=== PATIENT | female | born 1975 | race Caucasian/White ===

== ENCOUNTER → 2018-04-08 11:44 | Outpatient (CLI) | payer OTHER, SELFPAY ==
--- NOTE | 2018-04-08 | DI.US.S_ITS ---
PROCEDURE: US PELVIC COMPLETE INDICATIONS: PAIN TECHNIQUE: Real-time scanning was performed of the pelvic organs, with image documentation. Additional endovaginal scanning was necessary due to incomplete visualization of the adnexal and endometrial structures by transabdominal scanning. COMPARISON: None. FINDINGS: Transabdominal scanning: Limited scanning through the kidneys shows no hydronephrosis. Hyperechoic renal calyces are incidentally noted, however. No pathologic free abdominal or pelvic fluid. Endovaginal scanning: Uterus: Uterus is normal in size at 6.5 x 4.1 x 5.3 cm. The endometrium measures 12 mm in combined thickness and demonstrates heterogeneity. Ovaries: The right ovary measures 2.3 x 1.3 x 1 point or cm. The left ovary measures 2.5 x 1.3 x 1.3 cm. The ovaries have a normal sonographic appearance, with physiologic cystic follicle seen. No adnexal masses are seen. IMPRESSION: 12 mm endometrial stripe, which is within normal limits. The endometrial stripe is heterogeneous, which is likely related to the stage of menstruation. Hyperechoic renal calyces are incidentally noted. Please correlate with potential causes of medullary nephrocalcinosis. Dictated by: Brent Bobo M.D. on 04/08/2018 at 13:53 Approved by: Brent Bobo M.D. on 04/08/2018 at 13:55
--- NOTE | 2018-04-08 | DI.CT.S_ITS ---
PROCEDURE: CT ABDOMEN PELVIS WO CON INDICATIONS: right pain around gallbladder TECHNIQUE: Noncontrast 5 mm thick sections acquired from the diaphragms to the symphysis. 5 mm coronal and sagittal reformats were then performed. For radiation dose reduction, the following was used: automated exposure control, adjustment of mA and/or kV according to patient size. COMPARISON: None. FINDINGS: Image quality: Excellent. ABDOMEN: Lung bases: Lung bases are clear. Heart size is normal. Solid organs: Liver is normal in size. Gallbladder is largely collapsed at the time of this study, limiting its evaluation. Pancreas is normal in contours. Spleen is normal in size. No adrenal nodules. The kidneys demonstrate normal size. There is diffuse calcification seen of the renal pyramids. Nonobstructing bilateral renal stones are seen. The largest solitary stone seen on the right measuring up to 4 mm in greatest axial dimension, with a craniocaudal extent of 7 mm.. The largest stone on the left side measures 2-3 mm, as on series 2 image 24. There is no hydronephrosis. No stones are seen along the courses of the ureters. There is a prominent pelvic phlebolith seen on the left side, as on series 2 image 73, which is seen separate from the distal left ureter, which is seen medial to the phlebolith. Peritoneum and bowel: Unenhanced bowel loops demonstrate normal wall thickness and caliber. No free fluid or air. Nodes and vessels: No retroperitoneal or mesenteric adenopathy by size criteria. Aorta and inferior vena cava are normal in caliber. Miscellaneous: No ventral hernias. PELVIS: Genitourinary: Bladder wall thickness is normal. Miscellaneous: No inguinal hernias or adenopathy. Bones: No suspicious bony lesions. No vertebral body compression fractures. Mild levoconvex scoliotic curvature is noted. IMPRESSION: Nonobstructing bilateral renal stones are seen. No hydronephrosis or ureteral stones are seen. Medullary nephrocalcinosis is seen. Collapsed gallbladder, which limits evaluation of the gallbladder. Dictated by: Brent Bobo M.D. on 04/08/2018 at 11:15 Approved by: Brent Bobo M.D. on 04/08/2018 at 11:19
== END ==
PROVIDERS: Referring Provider Obstetrics & Gynecology; Visit Provider Nurse Practitioner Family
DX: R10.9 Unspecified abdominal pain (principal); N20.0 Calculus of kidney; N29 Other disorders of kidney and ureter in diseases classified elsewhere
CPT/HCPCS: 74176; 76830; 76856

== ENCOUNTER → 2019-01-04 11:17 | Outpatient (CLI) | payer OTHER, SELFPAY ==
--- NOTE | 2019-01-04 | DI.US.S_ITS ---
PROCEDURE: US RENAL COMPLETE INDICATIONS: Kidney Disease TECHNIQUE: Real-time scanning was performed of the kidneys and bladder, with image documentation. COMPARISON: [facility], CT, CT ABDOMEN PELVIS WO CON, 04/08/2018, 11:46. FINDINGS: Kidneys: Kidneys are normal in size. Right kidney measures 10.9 cm long; left kidney measures 9.7 cm long. Right renal cortical thickness is 0.7 cm; left renal cortical thickness is 0.5 cm. There is increased echogenicity in the renal medulla bilaterally, compatible with medullary calcinosis. Small punctate echogenic foci bilaterally are consistent with nonobstructive stones. No hydronephrosis. No suspicious solid mass lesions. Bladder: Pre-void bladder volume is 443 mL. Post-void residual is 4 mL. Pre-void images demonstrate no intraluminal masses or stones. On pre-void images, both ureteral jets are noted with color Doppler interrogation. (Of note, ureteral jets may not be detectable in up to 25% of cases due to insufficient differences in specific gravity between ureteral and bladder urine). Miscellaneous: No free pelvic fluid. A 5 mm hyperechoic nodule is noted in spleen, most compatible with a hemangioma. IMPRESSION: 1. Echogenic renal medulla bilaterally consistent with medullary calcinosis. 2. Small nonobstructive renal calculi bilaterally. 3. A 5 mm hypoechoic nodule in spleen is most likely a hemangioma. Dictated by: Rober Law M.D. on 01/04/2019 at 14:45 Approved by: Rober Law M.D. on 01/04/2019 at 14:52
== END ==
PROVIDERS: Visit Provider Internal Medicine Nephrology
DX: N20.0 Calculus of kidney (principal); N29 Other disorders of kidney and ureter in diseases classified elsewhere
CPT/HCPCS: 76770

== ENCOUNTER → 2019-05-10 14:56 | Outpatient (CLI) | payer OTHER, SELFPAY | PROVIDERS: PCP Nurse Practitioner Family; Visit Provider Nurse Practitioner Family | DX: D35.1 Benign neoplasm of parathyroid gland (principal); E03.9 Hypothyroidism, unspecified; E21.3 Hyperparathyroidism, unspecified | CPT/HCPCS: 77080; 77081 ==

== ENCOUNTER → 2020-07-30 09:35 | Outpatient (CLI) | payer OTHER, SELFPAY ==
--- NOTE | 2020-07-30 09:41 | DI.MG.S_ITS ---
BILATERAL DIGITAL DIAGNOSTIC MAMMOGRAM 3D/2D: 07/30/2020 CLINICAL: Baseline exam. Left breast pain. No prior exams were available for comparison. The tissue of both breasts is heterogeneously dense. This may lower the sensitivity of mammography. No significant masses, calcifications, or other findings are seen in either breast. IMPRESSION: INCOMPLETE: NEEDS ADDITIONAL IMAGING EVALUATION There is no abnormality seen in the left breast to correspond with the palpable abnormality and pain, however, ultrasound is recommended. Targeted ultrasound is recommended for further evaluation, which will be performed on the same day immediately following this exam. This exam was interpreted at Station ID: [id number]. NOTE: For mammograms, a report in lay terms will be sent to the patient. Approximately 15% of breast malignancies will not be visualized mammographically. In the management of a palpable breast mass, a negative mammogram must not discourage biopsy of a clinically suspicious lesion. Electronically Signed By: Oli padilla/dalton:07/30/2020 11:11:33 ACR BI-RADS Category 0: Incomplete [id number]
--- NOTE | 2020-07-30 09:41 | DI.US.S_ITS ---
LIMITED ULTRASOUND OF LEFT BREAST: 07/30/2020 CLINICAL: Focal, cyclic left breast pain x 1 year. Palp lump in same area felt by clinician. Comparison is made to exam dated: 07/30/2020 mammogram - [facility]. Ultrasound of was performed. No significant abnormalities were seen sonographically in the left breast. IMPRESSION: NEGATIVE There is no sonographic evidence of malignancy. There is no abnormality seen in the left breast to correspond with the palpable abnormality and pain, however, clinical correlation is recommended. A 1 year screening mammogram is recommended. This exam was interpreted at Station ID: [id number]. Electronically Signed By: Oli padilla/dalton:07/30/2020 11:13:08 letter sent: Clinical Evaluation Ultrasound BI-RADS: 1 Negative
== END ==
PROVIDERS: PCP Nurse Practitioner Family; Referring Provider Nurse Practitioner Family; Visit Provider Nurse Practitioner Family
DX: R92.8 Other abnormal and inconclusive findings on diagnostic imaging of breast (principal); N64.4 Mastodynia
CPT/HCPCS: 76642; 77066; G0279

== ENCOUNTER → 2023-03-23 14:00 | Outpatient (CLI) | payer OTHER, SELFPAY ==
--- NOTE | 2023-03-23 | DI.ECHO.S_ITS ---
[place] [facility]---------+ [facility] +---------+ : : [address] : : : : [id number] : : : : Phone: [phone]+ Echocardiogram Report + + :Name: ROSSY PANTOJA Study Date: 03/23/2023 Height: 65.5 in: :[facility] ReadingLocation: Weight: 140 lb : : Gender: Female BSA: 1.7 m2 : :: 1975 Age: 47 yrs BP: 119/81 mmHg: :Reason For Study: CHEST PAIN : :Ordering Physician: PRASHANTH, : :LAURA Performed By: Zahira Santiago : :Referring: LAURA KELLER : + + Interpretation Summary 1) Normal left ventricular thickness, size, and systolic function (EF 55-60%). 2) There are no obvious focal wall motion abnormalities noted but poor endocardial definition reduces the sensitivity for the detection of such. 3) Normal right ventricular size and function. 4) No significant valvular abnormalities. 5) No prior Echo available for comparison. Procedure: A two-dimensional transthoracic echocardiogram with color flow and Doppler was performed. The study quality was technically adequate. There is no prior echocardiogram noted for this patient. The patient was in sinus rhythm with heart rates between 68-81 bpm during the exam. Left Ventricle: The left ventricle is normal in size and wall thickness. The ejection fraction is estimated to be 55-60%. There are no obvious focal wall motion abnormalities noted but poor endocardial definition reduces the sensitivity for the detection of such. Right Ventricle: The right ventricle is normal in size and function. Atria: The left atrial size is normal. Right atrial size is normal. There is no Doppler evidence for an interatrial shunt. Mitral Valve: The mitral valve is normal in structure and function. There is trace mitral regurgitation. Aortic Valve: The aortic valve is trileaflet. The aortic valve opens well. There is no aortic valve stenosis. No aortic regurgitation is present. Tricuspid Valve: The tricuspid valve is normal in structure and function. There is trace tricuspid regurgitation. Pulmonic Valve: The pulmonic valve is not well visualized. There is trace pulmonic regurgitation. Great Vessels: The aortic root is normal size. The ascending aorta could not be visualized. The IVC is of normal diameter and collapses greater than 50% with a sniff. This suggests a low right atrial pressure of 3 mm Hg. Pericardium/ Pleura There is no pericardial effusion. There is no pleural effusion. MMode/2D Measurements & Calculations LVIDd: 4.9 cm LVOT diam: 2.4 cm LVIDs: 3.5 cm Ao root diam: 3.1 cm FS: 29.7 % Ao Arch Diam (Prox Trans): 2.7 cm IVSd: 0.58 cm LVPWd: 0.60 cm LV [place]. diameter/BSA (cm/m^2): 2.9 LV sys. diameter/BSA (cm/m^2): 2.0 LA A2 area: 15.2 cm2 RA long axis: 4.3 cm LA A4 area: 13.5 cm2 RA area: 10.5 cm2 LA length (vol): 4.0 cm RA vol: 21.6 ml LA vol: 43.8 ml RA : 12.6 ml/m2 LA vol index: 25.6 ml/m2 IVC diam: 1.7 cm RVD1 (basal): 2.8 cm RVD2 (mid): 2.7 cm TAPSE: 1.6 cm Doppler Measurements & Calculations Ao V2 max: 126.5 cm/sec LVOT Max Julian: 105.8 cm/sec Ao V2 mean: 83.1 cm/sec LV V1 max P.5 mmHg Ao max P.4 mmHg LV V1 VTI: 22.9 cm Ao mean P.2 mmHg TOMI(I,D): 3.8 cm2 Ao V2 VTI: 26.6 cm TOMI(V,D): 3.7 cm2 sev ratio: 0.86 TOMI indexed to BSA (cm^2/m^2): 2.2 MV E max julian: 66.6 cm/sec PA V2 max: 67.6 cm/sec MV A max julian: 39.3 cm/sec PA V2 mean: 48.1 cm/sec MV E/A: 1.7 PA mean P.1 mmHg Med Peak E' Julian: 9.2 cm/sec PA pr(Accel): 19.1 mmHg E/E' med: 7.2 Lat Peak E' Julian: 12.0 cm/sec E/E' lat: 5.6 E/e' average: 6.4 MV dec time: 0.21 sec SV(LVOT): 101.9 ml Reading Physician:04:13 PM
== END ==
PROVIDERS: PCP Nurse Practitioner Family; Referring Provider Internal Medicine Cardiovascular Disease; Visit Provider Internal Medicine Cardiovascular Disease
DX: I47.1 Supraventricular tachycardia (principal); R07.9 Chest pain, unspecified
CPT/HCPCS: 93306

== ENCOUNTER → 2024-08-01 13:11 | Outpatient (CLI) | payer OTHER, SELFPAY ==
--- NOTE | 2024-08-01 13:14 | DI.RAD.S_ITS ---
PROCEDURE: XR CHEST 2V INDICATIONS: COUGH TECHNIQUE: 2 views of the chest were acquired. COMPARISON: None. FINDINGS: Surgical changes and devices: None. Lungs and pleura: Lungs are clear. No pleural effusions or pneumothorax. Mediastinum: Mediastinal contours are normal. Heart size is normal. Bones and chest wall: No suspicious bony abnormalities. Soft tissues appear unremarkable. IMPRESSION: No acute cardiopulmonary abnormality is seen. Dictated by: Mynor Naranjo M.D. on 08/02/2024 at 12:02 Approved by: Mynor Naranjo M.D. on 08/02/2024 at 12:02
== END ==
PROVIDERS: PCP Nurse Practitioner Family; Referring Provider Registered Nurse; Visit Provider Registered Nurse
DX: R05.1 Acute cough (principal)
CPT/HCPCS: 71046